=== PATIENT | female | born 1930 | race Two or more races ===

== ENCOUNTER 2020-11-01 18:19 | Emergency (ER) | payer BC ==
[~2020-11-01] VITALS: Ht 142.2 cm; Wt 49.9 kg
--- NOTE | 2020-11-01 18:47 | NUR ---
at bedside for MSE. Pt's friend Swetha ) called and wanted to leave her telephone number in case she needed to be contacted.
[2020-11-01] MEDS ORDERED: ACETAMINOPHEN 325 MG TABLET PO ONE (19:00)
[2020-11-01] MEDS ORDERED: ACETAMINOPHEN 325 MG TABLET ONE (19:29)
[2020-11-01] MEDS ORDERED: LIDOCAINE 5% PATCH TD ONE ×2 (19:30→19:44)
[2020-11-01] MEDS ORDERED: ACET-2154 PO (19:32)
[2020-11-01] MEDS ORDERED: NEOMY/BACITRA/POLYMYXIN B OINT UD PACKET TP ONE (20:19)
--- NOTE | 2020-11-01 20:22 | NUR ---
Patient discharged to home in stable condition. Written and verbal after care instructions given. Patient verbalizes understanding of instructions. Stressed follow up or return to ER for worsening s/s. Patient out of ER via wheelchair, assisted patient on transfer to car, no falls noted, no acute signs of distress, VSS, all belongings taken, to be driven home by friend via private vehicle.
[2020-11-01 20:23] VITALS: BP 141/55
== END 2020-11-01 20:23 | disposition home or self-care (01) ==
LOC: ER 18:25
DX: Z04.1 Encounter for examination and observation following transport accident (principal); R07.89 Other chest pain; M19.90 Unspecified osteoarthritis, unspecified site; Z85.3 Personal history of malignant neoplasm of breast; Z88.0 Allergy status to penicillin; I51.7 Cardiomegaly
CPT/HCPCS: 71045; 93005; A4663